=== PATIENT | female | born 1995 | race Caucasian/White ===

== ENCOUNTER 2019-05-17 10:58 | Emergency (ER) | payer OTHER ==
[~2019-05-17] VITALS: Ht 165.1 cm; Wt 57.3 kg
[~2019-05-17 10:58] MED LIST: ATARAX 25MG25 MG/TAB PO; BACTRIM DS 8001 TAB PO; CEPHALEXIN500 M1 PO; FLAGYL500 MG PO; IBU800 M1 PO; IRON325 MG PO; LORTAB 5/500 501 TAB PO; NAPROSYN500 MG PO; NO HOME MEDICATIONS; NORCO 325 MG-51 TAB PO; PERCOCET 325 MG1 TA2 PO; PRENATAL1 TA1; PRENATAL1 TA7 PO; REGLAN 10MG10 MG/TAB PO; SOME ANTIBIOTIC; ZANTAC 150150 MG PO; ZANTAC 150MG T150 MG PO; ZANTAC 7575 MG PO; ZOLOFT 50MG50 MG PO
[2019-05-17 11:05] VITALS: BP 113/69
[2019-05-17 11:17] LABS: COLLECTION METHOD CLEAN CATCH
[2019-05-17 11:24] LABS: MUCOUS Present /lpf; PH 5 (5-8); URINE APPEARANCE Hazy; URINE BACTERIA None Seen /hpf; URINE BILIRUBIN Negative (NEGATIVE); URINE BLOOD Negative (NEGATIVE); URINE COLOR Yellow; URINE GLUCOSE Negative (NEGATIVE); URINE KETONE Negative (NEGATIVE); URINE LEUKOCYTE ESTERASE Trace (NEGATIVE); URINE NITRATE Negative (NEGATIVE); URINE PROTEIN(semi-quant) Negative (NEGATIVE); URINE UROBILINOGEN Negative (NEGATIVE)
[2019-05-17 12:33] LABS: BASO % 0.3 % (0.0-2.0); EOS % 0.6 % (0-4.0); GRAN % 61.1 % (42.2-75.2); HEMOGLOBIN 10.6 g/dl (12.5-16.0); LYMPH % 29.8 % (20.0-51.0); MEAN CELL VOLUME 79 fl (80.0-100.0); MEAN CORPUSCULAR HEMOGLOBIN 25 pg (27.0-31.0); MEAN CORPUSCULAR HGB CONC 31 g/dl (33.0-37.0); MEAN PLATELET VOLUME 10.7 fl (7.4-10.4); MONO # 0.5 (0.1-0.6); MONO % 7.9 % (1.7-9.3); PLATELET COUNT 310 K/mm3 (130-400); RED BLOOD COUNT 4.31 M/mm3 (4.10-5.30); REDCELL DISTRIBUTION WIDTH-CV 13.7 % (11.5-14.5)
[2019-05-17 12:42] LABS: HEMATOCRIT 34.1 % (37.0-47.0)
[2019-05-17 12:44] LABS: ALANINE AMINOTRANSFERASE 10 U/L (9-52); ALBUMIN 4.3 gm/dL (3.5-5.0); ALKALINE PHOSPHATASE 50 U/L (50-136); ANION GAP 9 mmol/L (7-16); AST,SGOT 23 U/L (15-37); BILIRUBIN,TOTAL 0.5 mg/dL (0.0-1.0); BLOOD UREA NITROGEN 12 mg/dL (7-17); CALCIUM 9.5 mg/dL (8.4-10.2); CARBON DIOXIDE 26 mmol/L (22-30); CHLORIDE 105 mmol/L (98-107); CREATININE, serum 0.55 (0.52-1.25); GLUCOSE 77 mg/dL (74-106); LIPASE 60 U/L (23-300); POTASSIUM 4.3 mmol/L (3.4-5.0); SODIUM 141 mmol/L (137-145); TOTAL PROTEIN 7.1 gm/dL (6.4-8.2)
[2019-05-17 12:46] LABS: C-REACTIVE PROTEIN < 0.5 mg/dL (0.0-0.9)
[2019-05-17] MEDS ORDERED: NORCO 325 MG-51 TAB PO (14:44)
[2019-05-17] MEDS ORDERED: ZOFRAN ODT4 MG PO (14:44)
[2019-05-17 15:01] VITALS: PULSE 67; TEMP 97.5
== END 2019-05-17 15:01 | disposition home or self-care (01) ==
LOC: COL.ER 10:58
PROVIDERS: Emergency Medicine; Physician Assistant
DX: A04.72 Enterocolitis due to Clostridium difficile, not specified as recurrent (principal); D64.9 Anemia, unspecified; Z98.890 Other specified postprocedural states; Z90.89 Acquired absence of other organs; Z87.891 Personal history of nicotine dependence
CPT/HCPCS: J1885; J2405; J7030

== ENCOUNTER 2019-07-07 05:18 | Day surgery (SDC) | payer MEDICAID ==
[2019-07-07] VITALS (9 sets, daily range): BP systolic 113–125; BP diastolic 54–70; PULSE 63–92; TEMP 97.7–98.6
[~2019-07-07] VITALS: Ht 165.1 cm; Wt 53.2 kg
[~2019-07-07 05:18] MED LIST changes: +ZOFRAN ODT4 MG PO
[2019-07-07] MEDS ORDERED: VANDAZOLE 0.75%70 GM VG (05:52)
[2019-07-07] MEDS ORDERED: BENTYL 20MG20 MG/TAB PO (05:53)
[2019-07-07] MEDS ORDERED: FLORASTOR250 MG PO (05:54)
[2019-07-07] MEDS ORDERED: TYLENOL 500MG500 MG PO (05:55)
[2019-07-07] MEDS ORDERED: WOMEN'S DAILY1 TAB PO (05:56)
[2019-07-07] MEDS ORDERED: IRON TABLETS325 MG PO (05:56)
[2019-07-07] MEDS ORDERED: IBU800 M1 PO (09:55)
[2019-07-07] MEDS ORDERED: PERCOCET 325 MG1 TA2 PO (09:57)
--- NOTE | 2019-07-07 15:35 | NUR ---
1500 PATIENT NOT ABLE TO VOID. STRAIGHT CATH. FOR 700 CC YELLO URINE. PATIENT STATES, FEELS LESS PRESSURE NOW. DR BAUMAN CALLED ORDERS TO CONTINUE TO MONITOR, ENCOURAGE TO WALK HALLS IF VOIDS MAY BE DISCHARGED.
--- NOTE | 2019-07-07 16:37 | NUR ---
1600 IVF HEPLOCKED AT THIS TIME. PATIENT UP TO BATHROOM FOR 200 CC VOID. PATIENT UP WALKING IN HALLS WITH MOTHER. TOLERATES WELL. 1620 VOIDS 100 CC HEPLOCK DC'D AND ALL DISCHARGE INSTRUCTIONS GIVEN TO PATIENT AND MOTHER.VERBAL UNDERSTANDING NOTED.
== END 2019-07-07 16:39 | disposition home or self-care (01) ==
LOC: SDCO 05:18 → OB 11:00 → SDCO 16:39
DX: N83.01 Follicular cyst of right ovary (principal); F32.9 Major depressive disorder, single episode, unspecified; N76.0 Acute vaginitis; Z88.1 Allergy status to other antibiotic agents; Z86.14 Personal history of Methicillin resistant Staphylococcus aureus infection; Z87.891 Personal history of nicotine dependence; N73.9 Female pelvic inflammatory disease, unspecified; N85.00 Endometrial hyperplasia, unspecified
CPT/HCPCS: OP; J0690; J1100; J1170; J1885; J2405; J2704; J2710; J3010; J7120

== ENCOUNTER 2019-07-16 20:44 | Emergency (ER) | payer MEDICAID ==
[~2019-07-16] VITALS: Ht 165.1 cm; Wt 52.7 kg
[~2019-07-16 20:44] MED LIST changes: +BENTYL 20MG20 MG/TAB PO; +FLORASTOR250 MG PO; +IRON TABLETS325 MG PO; +TYLENOL 500MG500 MG PO; +VANDAZOLE 0.75%70 GM VG; +WOMEN'S DAILY1 TAB PO
[2019-07-16 21:08] LABS: COLLECTION METHOD CLEAN CATCH
[2019-07-16 21:13] LABS: BASO % 0.1 % (0.0-2.0); EOS # 0.1 (0.0-0.7); EOS % 0.9 % (0-4.0); GRAN # 4.4 (1.4-6.5); GRAN % 56.2 % (42.2-75.2); HEMOGLOBIN 11.1 g/dl (12.5-16.0); LYMPH # 2.4 (1.2-3.4); LYMPH % 30.3 % (20.0-51.0); MEAN CELL VOLUME 78 fl (80.0-100.0); MEAN CORPUSCULAR HEMOGLOBIN 24 pg (27.0-31.0); MEAN CORPUSCULAR HGB CONC 31 g/dl (33.0-37.0); MEAN PLATELET VOLUME 10.8 fl (7.4-10.4); MONO % 12.4 % (1.7-9.3); PLATELET COUNT 276 K/mm3 (130-400); RED BLOOD COUNT 4.64 M/mm3 (4.10-5.30); REDCELL DISTRIBUTION WIDTH-CV 16.2 % (11.5-14.5)
[2019-07-16 21:25] LABS: ALANINE AMINOTRANSFERASE 22 U/L (9-52); ALBUMIN 4.6 gm/dL (3.5-5.0); ALKALINE PHOSPHATASE 59 U/L (50-136); ANION GAP 12 mmol/L (7-16); AST,SGOT 24 U/L (15-37); BILIRUBIN,TOTAL 0.4 mg/dL (0.0-1.0); BLOOD UREA NITROGEN 24 mg/dL (7-17); CALCIUM 9.7 mg/dL (8.4-10.2); CARBON DIOXIDE 24 mmol/L (22-30); CHLORIDE 103 mmol/L (98-107); CREATININE, serum 0.69 (0.52-1.25); GLUCOSE 93 mg/dL (74-106); MUCOUS Present /lpf; PH 5 (5-8); POTASSIUM 4.3 mmol/L (3.4-5.0); SODIUM 140 mmol/L (137-145); TOTAL PROTEIN 7.5 gm/dL (6.4-8.2); URINE APPEARANCE Hazy; URINE BACTERIA Rare /hpf; URINE BILIRUBIN Negative (NEGATIVE); URINE BLOOD 1+ (NEGATIVE); URINE COLOR Yellow; URINE GLUCOSE Negative (NEGATIVE); URINE KETONE Trace (NEGATIVE); URINE LEUKOCYTE ESTERASE Negative (NEGATIVE); URINE NITRATE Negative (NEGATIVE); URINE PROTEIN(semi-quant) 1+ (NEGATIVE); URINE RBC 20-50 /hpf; URINE UROBILINOGEN Negative (NEGATIVE)
[2019-07-16 21:28] LABS: C-REACTIVE PROTEIN < 0.5 mg/dL (0.0-0.9)
[2019-07-17 00:08] VITALS: BP 131/67; PULSE 67; TEMP 97.6
== END 2019-07-17 00:11 | disposition home or self-care (01) ==
LOC: COL.ER 20:44
PROVIDERS: Nurse Practitioner
DX: R10.2 Pelvic and perineal pain (principal); F17.210 Nicotine dependence, cigarettes, uncomplicated; E05.90 Thyrotoxicosis, unspecified without thyrotoxic crisis or storm; Z90.49 Acquired absence of other specified parts of digestive tract; Z88.1 Allergy status to other antibiotic agents
CPT/HCPCS: J1170; J2405; J3010; J7030; Q9967

== ENCOUNTER → 2019-08-24 | Outpatient (CLI) | payer MEDICAID | LOC: COL.RAD 13:23 | DX: E05.90 Thyrotoxicosis, unspecified without thyrotoxic crisis or storm (principal) | CPT/HCPCS: A9516 ==

== ENCOUNTER → 2019-10-19 | Outpatient (CLI) | payer MEDICAID | LOC: COL.RAD 09-14 08:15 | DX: H53.8 Other visual disturbances (principal) | CPT/HCPCS: A9585 ==